=== PATIENT | male | born 1980 | race Caucasian/White ===

== ENCOUNTER → 2018-06-22 | Outpatient (CLI) | payer MEDICAID, OTHER ==
--- NOTE | 2018-06-22 14:25 | KCIC ---
Complete abdominal ultrasound History: Left flank pain.. Findings: Aorta: Proximal segment poorly seen. Mid and distal aorta demonstrate no evidence of aneurysm. Inferior vena cava: Patent Pancreas: Unremarkable Liver: Unremarkable and not enlarged Gallbladder: No evidence of cholelithiasis, gallbladder wall thickening or pericholecystic fluid. Bile ducts: No evidence of dilatation Right kidney: 10.6 cm length. 2.0 cm cyst. Left kidney: 10.7 cm length. No evidence of hydronephrosis. Spleen: Not enlarged Urinary bladder is not distended. Impression: 1. Right renal cyst. 2. Otherwise no significant sonographic abnormality. Electronically signed by: Randolph Rodriguez MD (06/22/2018 2:21 PM) [id number]
== END | disposition home or self-care (01) ==
LOC: KCIC US 09:30
PROVIDERS: ATTEND Family Medicine
DX: N28.1 Cyst of kidney, acquired (principal); R10.9 Unspecified abdominal pain
CPT/HCPCS: 76700

== ENCOUNTER → 2021-10-25 | Outpatient (CLI) | payer MEDICAID ==
--- NOTE | 2021-10-25 13:45 | KCIC ---
CT abdomen pelvis without contrast dated 10/25/2021 COMPARISON: None INDICATION: Flank pain. TECHNIQUE: Contiguous axial imaging the abdomen pelvis performed without the ministration of IV or oral contrast . One or more of the following individualized dose reduction techniques were utilized for this examinat ion: 1. Automated exposure control 2. Adjustment of the mA and/or kV according to patient size 3. Use of iterative reconstruction technique FINDINGS: Limited images of lung bases are clear. Heart size within normal limits. No pleural or pericardial ef fusion. Solid abdominal viscera not well evaluated in the absence of contrast material. No apparent attenuati on abnormality of the liver or spleen. Pancreas, adrenal glands, gallbladder unremarkable. Kidneys are symmetric in size and attenuation. There is a punctate calcific density in the lower pole left kidney measuring 1 to 2 mm in size. No ureteral stone or hydronephrosis. There is a low-density focus at the lower pole right kidney that measures 1.6 cm and Hounsfield value of 9, likely cyst. Unopacified GI tract normal in caliber and contour. No focal bowel wall thickening. No inflammatory s tranding in the mesentery. No ascites or lymphadenopathy. The appendix is normal in caliber. Abdomina l aorta normal in caliber Images of pelvis a nondistended urinary bladder. Prostate gland is normal in size. No free fluid or p elvic lymphadenopathy. Bone window show no acute findings. Mild lower lumbar spondylosis. IMPRESSION: 1. Minimal left-sided nephrolithiasis, nonobstructive. No ureteral stone or hydronephrosis. 2. Low-density focus at the lower pole right kidney, likely cyst. 3. Otherwise no acute findings. Normal appendix Electronically signed by: Randolph Amezcua MD (10/25/2021 1:42 PM) [facility]
== END ==
LOC: KCIC CT 13:07
PROVIDERS: ATTEND Family Medicine
DX: N20.0 Calculus of kidney (principal); R31.9 Hematuria, unspecified; M47.816 Spondylosis without myelopathy or radiculopathy, lumbar region
CPT/HCPCS: 74176